=== PATIENT | male | born 1940 | race Caucasian/White ===

== ENCOUNTER 2017-09-03 22:12 | Observation (INO) | payer OTHER ==
[2017-09-03] MEDS ORDERED: NS 1,000 ML IV ONE (22:30)
--- NOTE | 2017-09-03 22:30 | EDPHY ---
H & P Stated Complaint: LIGHTHEADED,BURNING CHEST,INDIGEST,LOW HR, DAIGLE, SINCE 2PM Time Seen by Provider: 09/03/17 22:30 HPI/ROS: HPI CHIEF COMPLAINT: Lightheaded and chest discomfort HISTORY OF PRESENT ILLNESS: Patient is a 77-year-old male, he has a history of aortic valve replacement in 2009, and multiple orthopedic surgeries he takes daily aspirin and vitamins but otherwise states he is healthy, he presents emergency room stating that since around 4:00 p.m. This afternoon he has felt lightheaded and additionally has had intermittent chest discomfort he describes as burning in the center of his chest. He reports some left shoulder pain with this but contributes his left shoulder pain from a recent CPR performed on his a few days ago. He states that today he has felt somewhat off, lightheaded , no room spinning, and some discomfort in his chest that is happened briefly 2- 3 episodes. Denies recent illness, denies fever, vomiting denies diarrhea. Past Medical History: Denies significant medical history except for aortic valve Past Surgical History: Multiple surgeries including bilateral shoulders, left knee, cervical fusion, lumbar fusion, aortic valve Social History: Denies daily use of drugs alcohol tobacco. Family History: Noncontributory ROS REVIEW OF SYSTEMS: A comprehensive 10 point review of systems is otherwise negative aside from elements mentioned in the history of present illness. Exam Constitutional appears well nontoxic triage nursing summary reviewed, vital signs reviewed, awake/alert. Eyes normal conjunctivae and sclera, EOMI, PERRLA. HENT normal inspection, atraumatic, moist mucus membranes, no epistaxis, neck supple/ no meningismus, no raccoon eyes. Respiratory clear to auscultation bilaterally, normal breath sounds, no respiratory distress, no wheezing. Cardiovascular rate normal, regular rhythm, no murmur, no edema, distal pulses normal. Gastrointestinal soft, non-tender, no rebound, no guarding, normal bowel sounds, no distension, no pulsatile mass. Genitourinary no CVA tenderness. Musculoskeletal no midline vertebral tenderness, full range of motion, no calf swelling, no tenderness of extremities, no meningismus, good pulses, neurovascularly intact. Skin pink, warm, & dry, no rash, skin atraumatic. Neurologic awake, alert and oriented x 3, AAOx3, moves all 4 extremities equally, motor intact, sensory intact, CN II-XII intact, normal cerebellar, normal vision, normal speech. Psychiatric normal mood/affect. Heme/Lymph/Immune no lymphadenopathy. Differential diagnosis includes but is not limited to: ACS, atypical chest pain , pneumothorax, pneumonia, pulmonary embolism, aortic dissection, congestive heart failure, tumor, musculoskeletal pain, esophageal pain, GERD, peptic ulcer disease, pancreatitis Medical Decision Making: Plan for this patient IV establishment blood work, EKG , chest x-ray, cardiac marker, rule out acute coronary syndrome, CT head Re-evaluation: EKG interpretation by me on record in [employer] system. Impression time of EKG 2231, sinus rhythm rate of [address] elevation, nonspecific intraventricular conduction delay. No significant T-wave abnormalities. Subtle T-wave flattening in V4 V5 V6. ED x-ray chest one view: Negative for acute cardiopulmonary disease. CT head without contrast negative for anything acute specifically no blood. Called to me by Dr. Shane Ho 2335: Given patient's constellation of symptoms of lightheadedness, chest discomfort intermittently his cardiac risk factors including his age, patient will be admitted to the hospital for further cardiac evaluation. 2336:Here in the emergency room is EKG is nonischemic is negative troponin negative D-dimer chest x-ray did stable. He is chest pain-free at this time. Plan will be for admission for cardiac rule out. 2342: Re-evaluation is resting comfortably. He has agreed for hospital admission/observation for chest pain further evaluation. Spoke with the hospitalist service Dr. King who agrees to admit. Source: Patient - Personal History Current Tetanus/Diphtheria Vaccine: Yes - Medical/Surgical History Hx Asthma: No Hx Chronic Respiratory Disease: No Hx Diabetes: No Hx Cardiac Disease: No Hx Renal Disease: No Hx Cirrhosis: No Hx Alcoholism: No Hx HIV/AIDS: No Hx Splenectomy or Spleen Trauma: No Other PMH: AORTIC VALVE, PROSTATECTOMY 09/2016, LEFT KNEE, CERVICAL AND LUMBAR SURGERIES - Social History Smoking Status: Never smoked Constitutional: Initial Vital Signs Temperature (C) 36.5 C 09/03/17 22:22 Heart Rate 72 09/03/17 22:22 Respiratory Rate 18 09/03/17 22:22 Blood Pressure 145/81 H 09/03/17 22:22 O2 Sat (%) 94 09/03/17 22:22 O2 Delivery Mode Room Air Allergies/Adverse Reactions: Sulfa (Sulfonamide Antibiotics) Allergy (Severe, Verified 09/03/17 22:20) Rash/Scrotum peeled tetracycline [Tetracycline] Allergy (Severe, Verified 09/03/17 22:20) Rash/Scrotum peeled furosemide [From Lasix] Allergy (Unknown, Verified 09/03/17 22:20) Rash latex [Latex] Allergy (Verified 09/03/17 22:20) Rash Home Medications: Medication Instructions Recorded Aspirin [Aspirin 81mg (OTC)] 81 mg PO DAILY 12/25/12 Multivit-Min/FA/Lycopene/Lut 1 each PO DAILY 12/25/12 [Centrum Silver Tablet] Citracal 09/03/17 Vitamin D3 09/03/17 Medical Decision Making - Diagnostics Imaging Results: Imaging Impressions Chest X-Ray 09/03/17 22:30 Impression: No acute abnormality. Head CT 09/03/17 22:38 Impression: There is no acute intracranial abnormality identified on this unenhanced CT evaluation. If there is further clinical concern regarding the patient's symptoms, MR imaging is suggested, if not otherwise contraindicated. Findings were discussed with Donavon Akbar MD at 23:21, on 09/03/2017. - Data Points Laboratory Results: Laboratory Results 09/03/17 22:40 09/03/17 22:40 09/03/17 09/03/17 09/03/17 22:40 22:40 22:40 WBC 4.55 10^3/uL 10^3/uL (3.80-9.50) RBC 5.26 10^6/uL 10^6/uL (4.40-6.38) Hgb 17.2 g/dL g/dL (13.7-17.5) Hct 48.5 % % (40.0-51.0) MCV 92.2 fL fL (81.5-99.8) MCH 32.7 pg pg (27.9-34.1) MCHC 35.5 g/dL g/dL (32.4-36.7) RDW 12.7 % % (11.5-15.2) Plt Count 189 10^3/uL 10^3/uL (150-400) MPV 9.9 fL fL (8.7-11.7) Neut % (Auto) 57.2 % % (39.3-74.2) Lymph % (Auto) 24.4 % % (15.0-45.0) [place] % (Auto) 12.5 % % (4.5-13.0) Eos % (Auto) 4.4 % % (0.6-7.6) Baso % (Auto) 1.3 % % (0.3-1.7) Nucleat RBC Rel Count 0.0 % % (0.0-0.2) Absolute Neuts (auto) 2.60 10^3/uL 10^3/uL (1.70-6.50) Absolute Lymphs (auto) 1.11 10^3/uL 10^3/uL (1.00-3.00) Absolute Monos (auto) 0.57 10^3/uL 10^3/uL (0.30-0.80) Absolute Eos (auto) 0.20 10^3/uL 10^3/uL (0.03-0.40) Absolute Basos (auto) 0.06 10^3/uL 10^3/uL (0.02-0.10) Absolute Nucleated RBC 0.00 10^3/uL 10^3/uL (0-0.01) Immature Gran % 0.2 % % (0.0-1.1) Immature Gran # 0.01 10^3/uL 10^3/uL (0.00-0.10) PT 13.8 SEC SEC (12.0-15.0) INR 1.04 (0.83-1.16) APTT 26.6 SEC SEC (23.0-38.0) D-Dimer 0.44 ug/mLFEU ug/mLFEU (0.00-0.50) Sodium 142 mEq/L mEq/L (135-145) Potassium 4.8 mEq/L mEq/L (3.5-5.2) Chloride 107 mEq/L mEq/L (97-110) Carbon Dioxide 26 mEq/l mEq/l (22-31) Anion Gap 9 mEq/L mEq/L (8-16) BUN 21 mg/dL mg/dL (7-23) Creatinine 0.8 mg/dL mg/dL (0.7-1.3) Estimated GFR > 60 Glucose 97 mg/dL mg/dL (70-100) Calcium 9.3 mg/dL mg/dL (8.5-10.4) Magnesium 2.3 mg/dL mg/dL (1.6-2.3) Total Bilirubin 1.0 mg/dL mg/dL (0.1-1.4) Conjugated Bilirubin 0.4 mg/dL mg/dL (0.0-0.5) Unconjugated Bilirubin 0.6 mg/dL mg/dL (0.0-1.1) AST 36 IU/L IU/L (17-59) ALT 50 IU/L IU/L (21-72) Alkaline Phosphatase 100 IU/L IU/L (38-126) Creatine Kinase 61 IU/L IU/L (0-224) CK-MB (CK-2) Fraction 2.10 ng/mL ng/mL (0.00-3.19) Troponin I < 0.012 ng/mL ng/mL (0.000-0.034) NT-Pro-B Natriuret Pep 123 pg/mL pg/mL (0-450) Total Protein 6.2 g/dL L g/dL (6.3-8.2) Albumin 4.1 g/dL g/dL (3.5-5.0) Lipase 154 IU/L IU/L (23-300) Medications Given: Discontinued Medications Acetaminophen (Tylenol) 1,000 mg PO EDNOW ONE Stop: 09/03/17 23:40 Last Admin: 09/03/17 23:45 Dose: 1,000 mg Sodium Chloride (Ns) 1,000 mls @ 0 mls/hr IV EDNOW ONE; Wide Open PRN Reason: Protocol Stop: 09/03/17 22:31 Last Admin: 09/03/17 22:56 Dose: 1,000 mls Departure - Departure Disposition: [facility] Inpatient Acute Clinical Impression: Chest pain Qualifiers: Chest pain type: unspecified Qualified Code(s): R07.9 - Chest pain, unspecified Condition: Fair
--- NOTE | 2017-09-03 22:34 | CPEKG ---
Heart Rate: 65 RR Interval: 923 P-R Interval: 164 QRSD Interval: 94 QT Interval: 380 QTC Interval: 396 P [place]: 48 QRS [place]: 54 T Wave [place]: 122 EKG Severity - ABNORMAL ECG - EKG Impression: SINUS RHYTHM EKG Impression: CONSIDER ANTEROSEPTAL INFARCT EKG Impression: NONSPECIFIC T ABNORMALITIES, LATERAL LEADS Electronically Signed By: Donavon Akbar 04-Sep-2017 07:07:40
[2017-09-03 22:52] LABS: PLATELET COUNT 189 10^3/uL (150-400)
[2017-09-03 23:02] LABS: CREATINE KINASE 61 IU/L (0-224); INR 1.04 (0.83-1.16); PROTIME(PATIENT) 13.8 SEC (12.0-15.0)
[2017-09-03] MEDS ORDERED: ACETAMINOPHEN 500 MG TAB PO ONE (23:39)
[2017-09-03] MEDS ORDERED: ONDANSETRON 4 MG/2 ML VIAL IVP PRN (23:53)
[2017-09-04 04:23] LABS: CREATINE KINASE 55 IU/L (0-224)
[2017-09-04] MEDS: ACETAMINOPHEN 325 MG TAB PO PRN ×2 (04:23→10:03)
[2017-09-04] MEDS ORDERED: SODIUM CL NASAL 45 ML BTL NS PRN (08:42)
--- NOTE | 2017-09-04 08:52 | PDGENHP ---
History and Physical - Chief Complaint Lightheadedness and chest discomfort - History of Present Illness Source-patient provides history and appears reliable. EMR was reviewed and case discussed with ED provider. 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 Patient reports that he has had intermittent episodes of lightheadedness that is non vertiginous on over the past several months. Generally these episodes last just a few seconds and resolve on their own. Today patient reports that he experienced a full day of lightheadedness along with development of mild right-sided headache. Later in the evening patient reports that he developed some substernal burning type pain which he thought was heartburn. Patient states that he took some Prilosec with some improvement of his symptoms however it did return this time with some nausea on and progressive lightheadedness. Patient states that he did not feel well. He denies any radiating chest pain. No recent illnesses. No fevers chills or sweats. Patient without any cough. No vomiting. Patient also states that he was feeling some abdominal discomfort and felt constipated. He did have a bowel movement which seemed to have helped temporarily and then his symptoms returned a few hours later. Patient was became increasingly concerned when he noted that his blood pressure was elevated systolic 160s normally 120s. Also his heart rate had declined to the 50s usually in the 70s. Patient has had stable dyspnea on exertion with some stairs or long distances. He is followed by [facility]. Patient underwent a stress test and cardiac cath in 2009 prior to his on aortic valve replacement. Patient has not had a stress test since that time however he did undergo the several months ago for prostatectomy. History Information - Allergies/Home Medication List Allergies/Adverse Reactions: Sulfa (Sulfonamide Antibiotics) Allergy (Severe, Verified 09/03/17 22:20) Rash/Scrotum peeled tetracycline [Tetracycline] Allergy (Severe, Verified 09/03/17 22:20) Rash/Scrotum peeled Home Medications: Aspirin [Aspirin 81mg (OTC)] 81 mg PO DAILY 12/25/12 [Last Taken 09/03/17] Cholecalciferol Vit D3 [Vitamin D3 (*)] 1,000 units PO DAILY 09/03/17 [Last Taken 09/03/17] Herbals/Supplements -Info Only 1 ea PO DAILY 09/03/17 [Last Taken Unknown] Acetaminophen [Tylenol 325mg (*)] 325 mg PO DAILY PRN 09/04/17 [Last Taken Unknown] Carboxymethylcellulose 1% [Refresh Celluvisc (*)] 1 drop EACHEYE DAILY 09/04/17 [Last Taken 09/03/17] Multivitamins [Multivitamin (*)] 1 each PO DAILY 09/04/17 [Last Taken 09/03/17] Sodium Cl Nasal [[place] (*)] 1 spray NS DAILY PRN 09/04/17 [Last Taken Unknown] I have personally reviewed and updated: family history, medical history, social history, surgical history - Past Medical History Additional medical history: 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 Chronic pain. Osteoarthritis, degenerative disc disease, spinal stenosis. History of prostate cancer status post radical prostatectomy with subsequent urinary incontinence. - Surgical History Additional surgical history: Bilateral rotator cuff repair x2, left total knee arthroplasty, cervical spine fusion, lumbar laminectomy, prostatectomy, aortic valve replacement, cardiac cath. - Family History Additional family history: Father with history CAD and due to SD age 83. - Social History Smoking Status: Never smoked Alcohol Use: None Drug Use: Marijuana (Topical for joint pain) Additional social history: Patient is lives with his . Cor-full. Review of Systems Review of Systems: ROS: 10pt was reviewed & negative except for what was stated in HPI & below Muscolosketal: Reports: joint pain (Back pain), muscle pain Neurological: Reports: headache (The right-sided ), other (Lightheaded). Denies : numbness, tingling, weakness Physical Exam Physical Exam: Selected Entries 09/03/17 22:22 Blood Pressure Automatic Method Heart Rate 72 Respiratory 18 Rate O2 Sat (%) 94 Temperature (C) 36.5 C Blood Pressure 145/81 H Mean Arterial 102 H Pressure (MAP) O2 Delivery Room Air Mode Temperature Oral Source Temp Pulse Resp BP Pulse Ox 36.6 C 54 L 18 139/70 H 95 09/04/17 07:59 09/04/17 07:59 09/04/17 07:59 09/04/17 07:59 09/04/17 07:59 Constitutional: no apparent distress, appears nourished, not in pain, other ( NAD. Patient lays quietly in bed. Does appear fatigued.) Eyes: PERRL, anicteric sclera, EOMI, No scleral injection Ears, Nose, Mouth, Throat: moist mucous membranes, other (No nasal discharge), No poor dentition Cardiovascular: regular rate and rhythym, no murmur, rub, or gallop, bradycardia , No edema Peripheral Pulses: 1+: dorsalis-pedis (R), dorsalis-pedis (L) Respiratory: no respiratory distress, no rales or rhonchi, clear to auscultation Gastrointestinal: normoactive bowel sounds, soft, non-tender abdomen, no palpable masses, other (Obese abdomen soft but full.) Genitourinary: no bladder tenderness, No mccollum in urethra Skin: warm, normal color, no rashes or abrasions, No rash Musculoskeletal: full muscle strength Neurologic: AAOx3, sensation intact bilaterally, other (Nonfocal exam.), No facial droop Psychiatric: interacting appropriately, not anxious, not encephalopathic, thought process linear Lab Data & Imaging Review 09/03/17 22:40 09/04/17 03:21 WBC 4.55 10^3/uL (3.80-9.50) 09/03/17 22:40 RBC 5.26 10^6/uL (4.40-6.38) 09/03/17 22:40 Hgb 17.2 g/dL (13.7-17.5) 09/03/17 22:40 Hct 48.5 % (40.0-51.0) 09/03/17 22:40 MCV 92.2 fL (81.5-99.8) 09/03/17 22:40 MCH 32.7 pg (27.9-34.1) 09/03/17 22:40 MCHC 35.5 g/dL (32.4-36.7) 09/03/17 22:40 RDW 12.7 % (11.5-15.2) 09/03/17 22:40 Plt Count 189 10^3/uL (150-400) 09/03/17 22:40 MPV 9.9 fL (8.7-11.7) 09/03/17 22:40 Neut % (Auto) 57.2 % (39.3-74.2) 09/03/17 22:40 Lymph % (Auto) 24.4 % (15.0-45.0) 09/03/17 22:40 [place] % (Auto) 12.5 % (4.5-13.0) 09/03/17 22:40 Eos % (Auto) 4.4 % (0.6-7.6) 09/03/17 22:40 Baso % (Auto) 1.3 % (0.3-1.7) 09/03/17 22:40 Nucleat RBC Rel Count 0.0 % (0.0-0.2) 09/03/17 22:40 Absolute Neuts (auto) 2.60 10^3/uL (1.70-6.50) 09/03/17 22:40 Absolute Lymphs (auto) 1.11 10^3/uL (1.00-3.00) 09/03/17 22:40 Absolute Monos (auto) 0.57 10^3/uL (0.30-0.80) 09/03/17 22:40 Absolute Eos (auto) 0.20 10^3/uL (0.03-0.40) 09/03/17:40 Absolute Basos (auto) 0.06 10^3/uL (0.02-0.10) 09/03/17 22:40 Absolute Nucleated RBC 0.00 10^3/uL (0-0.01) 09/03/17 22:40 Immature Gran % 0.2 % (0.0-1.1) 09/03/17:40 Immature Gran # 0.01 10^3/uL (0.00-0.10) 09/03/17 22:40 PT 13.8 SEC (12.0-15.0) 09/03/17 22:40 INR 1.04 (0.83-1.16) 09/03/17:40 APTT 26.6 SEC (23.0-38.0) 09/03/17 22:40 D-Dimer 0.44 ug/mLFEU (0.00-0.50) 09/03/17 22:40 Sodium 144 mEq/L (135-145) 09/04/17 03:21 Potassium 4.1 mEq/L (3.5-5.2) 09/04/17 03:21 Chloride 112 mEq/L (97-110) H 09/04/17 03:21 Carbon Dioxide 27 mEq/l (22-31) 09/04/17 03:21 Anion Gap 5 mEq/L (8-16) L 09/04/17 03:21 BUN 19 mg/dL (7-23) 09/04/17 03:21 Creatinine 0.7 mg/dL (0.7-1.3) 09/04/17 03:21 Estimated GFR > 60 09/04/17 03:21 Glucose 79 mg/dL (70-100) 09/04/17 03:21 Calcium 8.6 mg/dL (8.5-10.4) 09/04/17 03:21 Magnesium 2.3 mg/dL (1.6-2.3) 09/03/17 22:40 Total Bilirubin 1.0 mg/dL (0.1-1.4) 09/03/17 22:40 Conjugated Bilirubin 0.4 mg/dL (0.0-0.5) 09/03/17 22:40 Unconjugated Bilirubin 0.6 mg/dL (0.0-1.1) 09/03/17 22:40 AST 36 IU/L (17-59) 09/03/17 22:40 ALT 50 IU/L (21-72) 09/03/17 22:40 Alkaline Phosphatase 100 IU/L (38-126) 09/03/17 22:40 Creatine Kinase 55 IU/L (0-224) 09/04/17 03:21 CK-MB (CK-2) Fraction 2.10 ng/mL (0.00-3.19) 09/03/17 22:40 Troponin I 0.017 ng/mL (0.000-0.034) 09/04/17 03:21 NT-Pro-B Natriuret Pep 123 pg/mL (0-450) 09/03/17 22:40 Total Protein 6.2 g/dL (6.3-8.2) L 09/03/17 22:40 Albumin 4.1 g/dL (3.5-5.0) 09/03/17 22:40 Lipase 154 IU/L (23-300) 09/03/17 22:40 Urine Color YELLOW 09/04/17 04:20 Urine Appearance CLEAR 09/04/17 04:20 Urine pH 5.0 (5.0-7.5) 09/04/17 04:20 Ur Specific [place] 1.012 (1.002-1.030) 09/04/17 04:20 Urine Protein NEGATIVE (NEGATIVE) 09/04/17 04:20 Urine Ketones NEGATIVE (NEGATIVE) 09/04/17 04:20 Urine Blood NEGATIVE (NEGATIVE) 09/04/17 04:20 Urine Nitrate NEGATIVE (NEGATIVE) 09/04/17 04:20 Urine Bilirubin NEGATIVE (NEGATIVE) 09/04/17 04:20 Urine Urobilinogen NEGATIVE EU (0.2-1.0) 09/04/17 04:20 Ur Leukocyte Esterase NEGATIVE (NEGATIVE) 09/04/17 04:20 Ur Culture Indicated? NOT INDICATED (NI) 09/04/17 04:20 Urine Glucose NEGATIVE (NEGATIVE) 09/04/17 04:20 Imaging Review: Portable AP Upright Chest, at 10:45 PM Clinical History: 77-year-old male with chest and epigastric pain, bradycardia , hypertension, lightheadedness, and dizziness today. Comparison Study: Chest, dated 05/07/2010. Findings: Telemetry monitoring lead lines are present. The caudal margin of cervical arthrodesis hardware is seen, and there are median sternotomy wires, and an aortic valvuloplasty. The cardiac and mediastinal silhouette is normal in size. There is no focal infiltrate, atelectasis, pleural effusion, peripheral interstitial edema, or pneumothorax. The osseous structures are notable for old healed right first and second rib fracture deformities, and a dextrothoracic scoliosis with multilevel degenerative change. There are also degenerative features of the shoulders. Impression: No acute abnormality. CT Scan of the Head (Without Contrast) Clinical History: 77-year-old male with a headache and lightheadedness which began at 4:00 PM today , and ended at 9:30 PM this evening. Technique: Axial unenhanced images were obtained from the vertex through the skull base, reformatted at 5.00 and 1.50 mm increments, and reviewed in bone, brain, and subdural windows. Images were reprocessed in parasagittal and paracoronal planes. Dose reduction techniques were utilized. The DFOV is 25.0 cm. Comparison Study: None. Findings: The ventricles and basilar cisterns are normal in size for age with mild atrophy, and are symmetrical in configuration. There is no midline shift, or other evidence of mass effect. There is no abnormal intra or extra-axial blood collection, or acute infarction identified. The mastoids are aerated, with the exception of some sclerosis seen along the posterior inferior right mastoid. There is some minimal mucosal thickening in the floor of the right maxillary sinus. The craniocervical junction, sella turcica, pineal gland, and the orbits are within normal limits. There is no acute calvarial fracture, or osteolytic or blastic lesion. There is mural atherosclerotic calcification of the cavernous carotid arteries, and minimally involving the vertebral arteries near the skull base. The lateral air hammer operator topogram demonstrates lower cervical arthrodesis hardware. Impression: There is no acute intracranial abnormality identified on this unenhanced CT evaluation. If there is further clinical concern regarding the patient's symptoms, MR imaging is suggested, if not otherwise contraindicated. Findings were discussed with Donavon Akbar MD at 23:21, on 09/03/2017. Visualized and Interpreted Chest x-ray results: Yes Visualized and Interpreted EKG results: Yes EKG additional interpertation: NSR in 60s. Q-waves in anteroseptal leads unchanged from previous EKG. T-wave flattening in the lateral leads is new. QTC 396. Assessment & Plan Assessment: 77-year-old gentleman who presents with complaints of 1 day history of lightheadedness persistent will along with substernal chest burning. Chest pain (Acute) -differential diagnosis including GERD/esophageal versus cardiac. History very low suspicion for PE or lung process. patient with some complaints of discomfort earlier that have since resolved. EKG with some subtle T-wave flattening compared to previous EKGs. History of aortic valve disease. Discussed options for further evaluation including echocardiogram and stress testing. Patient was hesitant to consider stress test secondary to side effects of the medication. He is amenable to proceed at this time. Echocardiogram this morning as well. Lightheadedness - status post IV fluids. Patient reports currently resolved. He is also complaining of some nasal congestion and right ear pain and headache for consider eustachian tube dysfunction. Orthostatic blood pressures. chronic medical problems chronic pain - resume patient's home medications and supportive care. degenerative disc disease urinary incontinence s/p prostatectomy - patient denies any additional urinary symptoms. FEN - status post 1 L IV fluid in the emergency department. Advance diet to cardiac after stress testing. Electrolyte replacement if needed. PPX-SCDs. Consider Lovenox if patient should stay additional day. Cor-full Disposition-patient admitted observation status at this time pending further evaluation on PCU for close cardiac monitoring.
[2017-09-04] MEDS ORDERED: Herbals/Supplements -Info Only PO SCH (09:00)
[2017-09-04] MEDS ORDERED: CARBOXYMETHYLCELLULOSE 1% 0.4 ML DROPERETTE EACHEYE SCH (09:00)
[2017-09-04] MEDS ORDERED: ENOXAPARIN 40 MG/0.4 ML SYR SC SCH (09:00)
[2017-09-04] MEDS ORDERED: MULTIVITAMINS 1 EACH TAB PO SCH (09:00)
[2017-09-04] MEDS ORDERED: ASPIRIN 81 MG CHEWABLE TAB PO SCH (09:00)
[2017-09-04] MEDS ORDERED: CHOLECALCIFEROL VIT D3 1,000 UNITS TAB PO SCH (09:00)
--- NOTE | 2017-09-04 09:34 | ASMTCMCOM ---
CM Note CM Note Notes: Patient admitted for substernal chest pain/burning. He's being worked up for a GI vs cardiac etiology and will have an echocardiogram today. Patient is normally independent, lives with his . PT has been ordered. I don't anticipate any discharge needs, but should they arise Case Management can assist. Date Signed: 09/04/2017 09:33 AM Electronically Signed By:Beatrice Chan RN
[2017-09-04] MEDS ORDERED: REGADENOSON 0.4 MG/5 ML SYR IVP ONE (10:55)
--- NOTE | 2017-09-04 14:31 | CPR ---
[f rep st] NONINVASIVE CARDIAC PROCEDURE REPORT PROCEDURE: Lexiscan injection MPI study. INDICATION FOR PROCEDURE: Chest pain, abnormal EKG and unable to run on treadmill. PRE: After obtaining informed consent, ensuring patient's n.p.o. status of caffeine for greater than 12 hours, patient was placed on electrocardiogram. Initial EKG shows sinus rhythm, T-waves noted in V1 and V2, with nonspecific T-waves in inferior leads. Patient denies any chest pain, shortness of breath, or symptoms suggesting of ischemia. Initial blood pressure 134/71, saturation 97%, heart rat e 63 beats per minute. INJECTION: Patient was given Lexiscan slow IV push followed by nuclear isotope. Within 3 minutes of injection, patient became flushed, reporting warm sensation, with a mild midsternal chest pressure. Blood pressure did drop down to 119/67. Besides increased heart rate, no significant EKG changes. Oc casional premature ventricular contraction. The patient was given caffeinated beverage, and within 5 minutes of post injection, patient reporting all symptoms subsided. EKG remained unchanged, blood p ressure back up to 142/72, heart rate decreased down to 90 beats per minute. Saturation 95%. IMPRESSION: 77-year-old male being evaluated for possible cardiac ischemia with episode of chest shane n, unable to run on treadmill. Reporting mild chest pressure with injection and flushing sensation w ith Lexiscan which subsided with time and caffeinated beverage. Vital signs remained stable througho ut the procedure. No significant EKG changes except occasional PVC. Currently patient is asymptomat ic, will be taken down to Nuclear Medicine for post stress MPI imaging. /[id number]/MODL
--- NOTE | 2017-09-04 15:10 | ECHO ---
[email or web address] [address] Main: [phone] Fax: Transthoracic Echocardiogram Name: DANY AMOS MR#: [id number] Study Date: 09/04/2017 Study Time: 01:55 PM Date of : 1940 Age: 77 year(s) Height: 172.7 cm (68 in.) Weight: 74.39 kg (164 lb.) BSA: 1.88 m2 Gender: Male Examination: Echo Indication: Chest Pain Image Quality: Contrast: Requested by: Frances King BP: 142 mmHg/72 mmHg Heart Rate: Rhythm: Indication: Chest Pain Procedure Staff Millinery Worker: Michael Velazquez RDCS Reading Physician: Nilo Morales MD Requesting Provider: Conclusions: Normal size left ventricle. No LV hypertrophy. Normal global systolic LV function. EF is 70 %. There is paradoxic septal motion suggestive of bundle branch block, paced cardiac rhythm, or prior cardiac surgery. Diastolic dysfunction is present. . Normal RV function. The mitral valve is normal in appearance. There is no mitral valve regurgitation. The aortic valve is a bioprosthesis. The peak Ao Vmax is 1.9m/s with a Mean PG of 8 mmHg. . The tricuspid valve appears normal. Trivial tricuspid valve regurgitation. Pulmonic Valve: Measurements: Chambers Valvular Assessment AV/MV Valvular Assessment TV/PV Normal Normal Normal Name Value Range Name Value Range Name Value Range Ao Willa (MM): 2.6 cm (2.2 cm-3.7 AV Vmax: 1.90 m/s (1 m/s-1.7 PV Vmax: 0.94 m/s (0.6 m/s-0.9 cm) m/s) m/s) IVSd (2D): 0.9 cm (0.6 cm-1.1 AV maxP mmHg ( - ) PV PGmax: 4 mmHg ( - ) cm) AV meanP mmHg ( - ) LVDd (2D): 3.9 cm (4.2 cm-5.9 LONA (VTI): 1.1 cm ( - ) cm) MV E Vmax: 0.81 m/s ( - ) LVDs (2D): 2.4 cm (2.1 cm-4 MV A Vmax: 1.05 m/s ( - ) cm) MV E/A: 0.77 ( - ) LVPWd (2D): 1.0 cm (0.6 cm-1 cm) Patient: DANY AMOS Study Date: 09/04/2017 Page 1 of 2 01:55 PM LVOTd 2.0 cm 2.0 cm mm LVEF (2D): 70 (>=54 %) Continued Measurements: Chambers Valvular Assessment AV/MV Name Value Name Value LADs Lon.6 cm MV E' Septal: 0.06 m/s LA Area: 15.0 cm2 MV E/E' Septal: 13.40 LA Volume: 42 ml MV E/E' Lateral: 9.40 LA Volume Index: 22.3 ml/m2 Findings: Left Ventricle: Normal size left ventricle. No LV hypertrophy. Normal global systolic LV function. EF is 70 %. There is paradoxic septal motion suggestive of bundle branch block, paced cardiac rhythm, or prior cardiac surgery. Diastolic dysfunction is present. . Right Ventricle: Normal size right ventricle. Normal RV function. Right Atrium: The right atrium is normal in size. Mitral Valve: The mitral valve is normal in appearance. There is no mitral valve regurgitation. Aortic Valve: The aortic valve is a bioprosthesis. The peak Ao Vmax is 1.9m/s with a Mean PG of 8 mmHg. . Tricuspid Valve: The tricuspid valve appears normal. Trivial tricuspid valve regurgitation. Pulmonic Valve: The pulmonic valve is normal in appearance and function. Aorta: The ascending Ao is dilated at 3.2 cm. Pericardium: No pericardial effusion. (No Signature Object) Patient: DANY AMOS Study Date: 09/04/2017 Page 2 of 2 01:55 PM [id number]
[2017-09-04 16:12] VITALS: BP 139/69
--- NOTE | 2017-09-04 18:16 | PDDCSUM ---
Discharge Summary Discharge Summary: DISCHARGE SUMMARY FOLLOW-UP ITEMS: 1. Consider outpatient 30 day event monitor 2. Monitor outpatient aortic valve DATE OF ADMISSION: 09/03/2017 DATE OF DISCHARGE: 09/04/2017 DISCHARGE DIAGNOSES: 1. Acute chest pain 2. Bovine aortic valve replacement CONSULTATIONS: None PROCEDURES / IMAGING: Lexiscan stress test demonstrating no inducible ischemia Echocardiogram demonstrating ejection fraction 70%, diastolic dysfunction, no focal wall motion abnormalities, no significant aortic valve issues CHIEF COMPLAINT: Acute chest pain, lightheadedness SUBJECTIVE: Patient is feeling well at time discharge, he is not experience recurrence of symptoms PHYSICAL EXAM ON DISCHARGE: Systolic blood pressure is 130-150, heart rate 60, afebrile overnight, satting on room air, alert awake oriented x3, lungs are clear to auscultation bilaterally, heart rhythm is regular with 1/6 murmur over the aortic valve systolic lay comma no inducible chest pain over the bilateral pectoralis muscles are the sternum LABS ON DISCHARGE: D-dimer negative, troponin negative x2, creatinine BUN and lytes normal, liver panel unremarkable, CBC normal HOSPITAL COURSE BY PROBLEM: The patient presented with acute chest pain, lightheadedness and was ruled out for acute coronary syndrome with negative troponin x2, no ischemic changes on EKG, were out for pulmonary embolism with negative D-dimer, ruled out for obstructive coronary disease with a negative Lexiscan stress test. He also underwent an echocardiogram to ensure that his aortic valve was not experiencing any acute issues, and it was in fact normal, with previous bovine replacement. Description of the symptoms suggested that he may be experiencing an intermittent arrhythmia, and I recommended an outpatient 30 day event monitor for further assessment. I also recommended as needed proton pump inhibitor for his mid chest symptoms which do sound consistent with GERD. DISCHARGE MEDICATIONS: Please see official discharge medication reconciliation sheet in chart , continue home medications without any changes. DISCHARGE INSTRUCTIONS: Please follow up with primary care provider to discuss ongoing reflux symptoms, follow up with Dr. Morales to discuss evaluation for arrhythmia.
== END 2017-09-04 17:06 | disposition home or self-care (01) ==
LOC: F2W 09-04 00:50
PROVIDERS: ADMIT Family Medicine; ATTEND Internal Medicine
PROC: 4A12XM4 Monitoring of Cardiac Stress, External Approach (ICD-10-PCS; principal; 2017-09-04)
DX: R07.9 Chest pain, unspecified (principal); R42 Dizziness and giddiness; R94.31 Abnormal electrocardiogram [ECG] [EKG]; E86.9 Volume depletion, unspecified; G89.29 Other chronic pain; Z79.82 Long term (current) use of aspirin; Z85.46 Personal history of malignant neoplasm of prostate; Z82.49 Family history of ischemic heart disease and other diseases of the circulatory system; Z95.3 Presence of xenogenic heart valve; Z96.652 Presence of left artificial knee joint; Z88.2 Allergy status to sulfonamides; Z98.1 Arthrodesis status
CPT/HCPCS: 70450; 71045; 78452; 93005; 93017; 93306; 97116; 97162; A9500; G0378; J1650; J2785; J2270

== ENCOUNTER 2018-10-26 06:40 | Observation (INO) | payer OTHER | END 2018-10-27 11:30 | disposition home or self-care (01) | LOC: F3N 06:40 → F1N 11:36 ==